=== PATIENT | female | born 1995 | race Caucasian/White ===

== ENCOUNTER 2020-08-22 09:48 | Emergency (ER) | payer OTHER, SELFPAY ==
--- NOTE | 2020-08-22 09:53 | ED.PREGNANCY ---
HPI - General Chief complaint: OB Stated complaint: , ob Time Seen by Provider: 08/22/20 09:52 Source: patient and old records reviewed Mode of arrival: ambulatory Limitations: no limitations History of Present Illness Complaint: other (told her by her OB she had a 17 week intrautereine demise on routine US yesterday - she wanted to have a 2nd opinion after her sister used a home heart tone machine and thought she heard something) Onset (ago): day(s) (1) Pain Consistency: other (no pain) Location: pelvis Relieving factors: none Exacerbating factors: none Associated symptoms: denies other symptoms Vaginal discharge: none Vaginal bleeding: none Patient : Yes Number of Weeks : 17 OB History - Current : other (confirmed IUFD by her [facility] OB yesterday ) OB History - Previous Pregnancies: other (told of demise yesterday) care: followed by OB Related Data : 1 Para: 0 Allergies Allergy/AdvReac Type Severity Reaction Status Date / Time No Known Allergies Allergy Unverified 07/19/20 16:26 [No Known Allergies*] Review of Systems Review of Systems: Constitutional : No Fever, No Chills Cardiovascular : No Chest Pain, No SOB Respiratory : No Cough, No Dyspnea Gastrointestinal : No Nausea, No Vomiting, No Diarrhea, No abdominal Pain Genitourinary : No Dysuria, No Hematuria, no vaginal bleeding Skin : No Skin lacerations, No rash Neuro : No Weakness, No Numbness, No Loss of Consciousness, No Dizziness, No Headache Psych : pos Anxiety/Panic, No Depression All other systems reviewed and are negative [facility] Past Medical History Medical History Asthma Diabetes Hypothyroidism Lupus Migraines : 1 Para: 0 Social History Social History (Updated 08/22/20 @ 09:54 by Mitra Knight DO) Smoking Status: Never smoker Use of substances other than those prescribed or required for medical reasons: No Advance Directives: No Advance Directives Information Provided: No Physical Exam Vital Signs: Vital Signs: Vital Signs Temp Pulse Resp BP Pulse Ox 08/22/20 10:03 98.5 F 111 H 18 132/84 99 Body Mass Index 22.2 Appearance: Alert. Oriented X3. No acute distress. Anxious Eyes: Pupils equal, round and reactive to light. ENT: Pharynx normal. Neck: Normal inspection. Neck supple. CVS: Normal heart rate and rhythm. Pulses normal. Respiratory: No respiratory distress. Breath sounds normal. Abdomen: Soft and nontender. Skin: Skin warm and dry. Normal skin color. Normal skin turgor. Extremities: No lower extremity edema. No calf ttp Neuro: Oriented X 3. No motor deficit. No sensory deficit. Procedures Procedure Narrative Procedure Narrative: bedsided transabdominal US shows intrauterine fetus no movement no cardiac activity after 3 minutes of scanning, performed by me, interpreted by me, exam consistent with IUFD Perimortem Number of Weeks : 17 MDM - OB/Uterine Contractions MDM Narrative Medical decision making narrative: 25 yo female with lupus G1 at 17 weeks found yesterday by her OB at [facility] to have IUFD - already has appointments and procedure scheduled this week, her sister used a home heart tones device and thought they heard something, she came her to have US to confirm her OBs findings of IUFD - I performed a bedside US that showed no cardiac activity or movement, the patient is aware and upset, wants to go home, discussed reasons to return and she plans to follow up with her own OB Discharge Plan Discharge Clinical Impression: Early intrauterine Patient Disposition: Home, Self-Care Instructions: Grief and Loss (ED) Additional Instructions: IF YOU HAVE SEVERE PAIN, VAGINAL BLEEDING PLEASE FOLLOW UP IN THE EMERGENCY DEPARTMENT. YOU ALSO NEED TO FOLLOW UP WITH [facility] OB SCHEDULED Stand Alone Forms: Work/School Release Interventions: ED Discharge Assessment Last Done: 08/22/20 10:20 Discharge Date/Time: 08/22/20 10:21
[2020-08-22 10:03] VITALS: BP 132/84; PULSE 111; RESP 18; TEMP 36.9; O2SAT 99; BMI 22.2
== END 2020-08-22 10:21 | disposition home or self-care (01) ==
LOC: HO.ED 10:15
PROVIDERS: Emergency Provider Emergency Medicine
DX: O02.1 Missed abortion (principal); Z3A.17 17 weeks gestation of pregnancy; E11.9 Type 2 diabetes mellitus without complications
CPT/HCPCS: 99282; 99284

== ENCOUNTER 2020-10-17 14:25 | Emergency (ER) | payer OTHER, SELFPAY ==
[2020-10-17 15:45] VITALS: BP 119/74; PULSE 77; RESP 16; TEMP 36.8; O2SAT 96; BMI 20.6
[2020-10-17 18:31] VITALS: BP 107/68; PULSE 78; RESP 16; TEMP 36.8; O2SAT 98
[2020-10-17 18:43] LABS: MANUAL DIFF FLAG NO
[2020-10-17 18:44] LABS: Basophils Percent Auto 0.4 % (0-2); Eosinophils Absolute Auto 0.1 X10*3/uL (0.0-0.4); Eosinophils Percent Auto 1.5 % (0-4); Hematocrit 38.4 % (37-47); Hemoglobin 12.7 g/dl (12.0-16.0); Imm Gran Abs Auto 0.01 X10*3/uL (0.00-0.03); Imm Gran Pct Auto 0.1 % (0.0-0.4); Lymphocytes Absolute Auto 1.4 X10*3/uL (1.2-4.9); Lymphocytes Percent Auto 20.3 % (20-40); Mean Corpuscular HGB Conc 33.1 g/dl (31.0-35.0); Mean Corpuscular Hemoglobin 29.7 pg (27.0-33.0); Mean Corpuscular Volume 89.7 fL (80-98); Mean Platelet Volume 12.5 fL (9.4-12.3); Monocytes Absolute Auto 0.5 X10*3/uL (0.1-1.2); Monocytes Percent Auto 7.6 % (2-11); Neutrophils Absolute Auto 4.7 X10*3/uL (2.0-8.3); Neutrophils Percent Auto 70.1 % (45-73); Platelet Count 264 X10*3/uL (160-400); Red Blood Count 4.28 X10*6/uL (4.20-5.50); Red Cell Distribution Width 12.2 % (11.0-16.0); White Blood Count 6.7 X10*3/uL (4.8-10.8)
[2020-10-17 18:46] LABS: Glucose Urine UA >=1000 MG/DL (NEG); Leukocyte Esterase Urine NEG (NEG); Nitrite Urine NEG (NEG); Urine Blood 1+ (NEG); Urine Ketones NEG (NEG); Urine Protein NEG (NEG-TRACE)
[2020-10-17 18:49] LABS: Appearance Urine HAZY; Color Urine STRAW
[2020-10-17 18:50] LABS: UPreg QC Valid YES; Urine Pregnancy NEGATIVE (NEGATIVE)
[2020-10-17 18:52] LABS: Prothrombin Time 12.4 SEC (10.8-13.0)
[2020-10-17 18:55] LABS: Partial Thromboplastin Time 37.2 SEC (24.1-38.0)
[2020-10-17 19:03] LABS: WBC Urine 0 /HPF (0-4)
[2020-10-17 19:04] LABS: Bacteria Urine 3+ /LPF
[2020-10-17 19:06] LABS: Alanine Aminotransferase 9 U/L (0-31); Albumin Level 4.3 g/dL (3.5-5.0); Alkaline Phosphatase 107 U/L (39-117); Anion Gap 10 (12-20); Aspartate Amino Transferase 11 U/L (5-31); Bilirubin Total 0.5 mg/dL (0.0-1.0); Blood Urea Nitrogen 9 mg/dL (9-16); Carbon Dioxide 28 mmol/L (22-29); Chloride 102 mmol/L (96-108); Creatinine Clr Calc Pharmacy 87.3; Estimated Glomerular Filt Rate > 60; Glucose Random 337 mg/dL (60-115); Potassium 3.8 mmol/l (3.3-5.1); Sodium 136 mmol/L (135-145); Total Protein 7.3 g/dL (6.5-8.0)
[2020-10-17 20:08] VITALS: BP 119/78; PULSE 75; RESP 18; TEMP 36.8; O2SAT 100
--- NOTE | 2020-10-17 20:28 | ED.SKABFB ---
HPI - Skin/Abscess/Foreign Bdy General Chief complaint: Skin/Abscess/Foreign Body Stated complaint: fatigue and bruising Time Seen by Provider: 10/17/20 17:57 Source: patient Mode of arrival: ambulatory Limitations: no limitations History of Present Illness HPI narrative: States she is here because she easily gets bruised and this is been going on for a little over a year after she had a miscarriage. MD complaint: rash Location: generalized Associated symptoms: denies other symptoms Treatments prior to arrival: none Related Data Home Medications Medication Instructions Recorded Confirmed glucagon (human recombinant) 1 mg SUBCUT ONCE PRN 10/17/20 10/17/20 [Glucagon Emergency Kit (human)] hydroxyzine HCl 1 tab PO TID 10/17/20 10/17/20 insulin lispro [Admelog U-100 0 - 100 unit SUBCUT DIRECTED 10/17/20 10/17/20 Insulin lispro] lamotrigine PO 10/17/20 levothyroxine 1 tab PO DAILY 10/17/20 10/17/20 Allergies Allergy/AdvReac Type Severity Reaction Status Date / Time No Known Allergies Allergy Unverified 07/19/20 16:26 [No Known Allergies*] Review of Systems Review of Systems: Constitutional: No Weight loss, No Fever, No Chills, No Night Sweats, No Fatigue, No Malaise ENT/Mouth: No Hearing loss, No Ear Pain, No Nasal Congestion, No Sinus Pain, No Hoarseness, No sore throat, No Rhinorrhea, No Swallowing Difficulty Eyes: No Eye Pain, No Swelling, No Redness, No Foreign Body, No Discharge, No Vision Changes Cardiovascular: No Chest Pain, No SOB, No Dyspnea on Exertion, No Orthopnea, No Edema, No Palpitations Respiratory: No Cough, No Sputum, No Wheezing, No Dyspnea Gastrointestinal: No Nausea, No Vomiting, No Diarrhea, No Constipation, No abdominal Pain, No Hematochezia, No Melena Genitourinary: no irregular bleeding, No Dysuria, No Urinary Frequency, No Hematuria, No Urinary Incontinence, No Urgency, No Flank Pain, No Urinary Flow Changes, No Hesitancy Musculoskeletal: No joint pain, No Myalgias, No Joint Swelling Skin: No Skin Lesions, No rash Neuro: No Weakness, No Numbness, No Paresthesias, No Loss of Consciousness, No Dizziness, No Headache Psych: No Social Issues Heme/Lymph: + Bruising, No Bleeding,No Lymphadenopathy Endocrine: No Polyuria, No Polydipsia, No Temperature Intolerance Yes all other systems are reviewed and are negative [facility] Past Medical History Medical History Asthma Diabetes Hypothyroidism Lupus Migraines Social History Social History (Updated 08/22/20 @ 09:54 by Mitra Knight DO) Smoking Status: Never smoker Smoked in Last 30 Days: No Use of substances other than those prescribed or required for medical reasons: No Advance Directives: No Advance Directives Information Provided: Yes Physical Exam Vital Signs: Vital Signs: Last Vital Signs Temp 98.3 F 10/17/20 20:08 Pulse 75 10/17/20 20:08 Resp 18 10/17/20 20:08 BP 119/78 10/17/20 20:08 Pulse Ox 100 10/17/20 20:08 Body Mass Index 20.6 Reviewed Const: General: cooperative and healthy appearing; No acute distress or intoxicated appearing Nutritional Appearance: average body habitus Orientation/consciousness: patient oriented x3 HENMT: Head: Yes normal to inspection Ears: hearing grossly normal bilaterally Eyes: General: appearance normal, both eyes and all related structures Visual Sunshine: normal visual sunshine by confrontation Neck: Neck: Yes normal visual inspection, No positive Brudzinski's sign, No positive Kernig's sign and No tender Thyroid: Thyroid normal Chest: Chest palpation & inspection: normal inspection of the chest Resp: Effort & Inspection: normal respiratory effort Cardio: Jugular venous distension: no JVD Rhythm: regular rhythm Heart sounds: S1 normal heart sound present GI: Inspection: Yes normal to inspection Percussion: Yes normal to percussion Auscultation: normal bowel sounds : General: Yes no CVA tenderness Back/Spine/Pelvis: Back: no CVA tenderness Skin: Other: She has a single ecchymosis area in the volar aspect of the right forearm. There is no ecchymosis anywhere else. General skin exam: no rashes or lesions noted Neuro: General: patient oriented x3 Extrem: General: Yes normal to inspection MDM - Skin/Abscess/Foreign Bdy MDM Narrative Medical decision making narrative: Labs overall stable. No thrombocytopenia. No anemia. Electrolytes within normal limits. Urine stable. Will advise to follow up with her primary care doctor. Lab Data Result diagrams: 10/17/20 18:36 10/17/20 18:36 Labs: Lab Results 10/17/20 10/17/20 10/17/20 Range/Units 18:36 18:36 18:36 WBC 6.7 (4.8-10.8) X10*3/uL RBC 4.28 (4.20-5.50) X10*6/uL Hgb 12.7 (12.0-16.0) g/dl Hct 38.4 (37-47) % MCV 89.7 (80-98) fL MCH 29.7 (27.0-33.0) pg MCHC 33.1 (31.0-35.0) g/dl RDW 12.2 (11.0-16.0) % Plt Count 264 (160-400) X10*3/uL MPV 12.5 H (9.4-12.3) fL Immature Gran % (Auto) 0.1 (0.0-0.4) % Neut % (Auto) 70.1 (45-73) % Lymph % (Auto) 20.3 (20-40) % [place] % (Auto) 7.6 (2-11) % Eos % (Auto) 1.5 (0-4) % Baso % (Auto) 0.4 (0-2) % Lymph # (Auto) 1.4 (1.2-4.9) X10*3/uL [place] # (Auto) 0.5 (0.1-1.2) X10*3/uL Eos # (Auto) 0.1 (0.0-0.4) X10*3/uL Baso # (Auto) 0.0 (0.0-0.2) X10*3/uL Abs Immat Gran (auto) 0.01 (0.00-0.03) X10*3/uL Absolute Neuts (auto) 4.7 (2.0-8.3) X10*3/uL Absolute Nucleated RBC 0.000 (0.0-0.012) X10*3/uL Nucleated RBC % (auto) 0.0 (0.0-0.2) /100WBC PT 12.4 (10.8-13.0) SEC INR 1.0 (0.9-1.1) APTT 37.2 (24.1-38.0) SEC Sodium 136 (135-145) mmol/L Potassium 3.8 (3.3-5.1) mmol/l Chloride 102 (96-108) mmol/L Carbon Dioxide 28 (22-29) mmol/L Anion Gap 10 L (12-20) BUN 9 (9-16) mg/dL Creatinine 0.91 (0.5-1.4) mg/dL Estim Creat Clear Calc 87.3 Estimated GFR > 60 Random Glucose 337 H (60-115) mg/dL Calcium 9.0 (8.4-10.2) mg/dL Total Bilirubin 0.5 (0.0-1.0) mg/dL AST 11 (5-31) U/L ALT 9 (0-31) U/L Alkaline Phosphatase 107 (39-117) U/L Total Protein 7.3 (6.5-8.0) g/dL Albumin 4.3 (3.5-5.0) g/dL Urine Color Urine Appearance Urine pH (5.0-8.0) Ur Specific [place] (1.005-1.025) Urine Protein (NEG-TRACE) MG/DL Urine Glucose (UA) (NEG) MG/DL Urine Ketones (NEG) MG/DL Urine Blood (NEG) Urine Nitrite (NEG) Ur Leukocyte Esterase (NEG) Urine RBC (0) /HPF Urine WBC (0-4) /HPF Ur Squamous Epith Cells /LPF Urine Bacteria /LPF Urine Test (NEGATIVE) 10/17/20 Range/Units 18:37 WBC (4.8-10.8) X10*3/uL RBC (4.20-5.50) X10*6/uL Hgb (12.0-16.0) g/dl Hct (37-47) % MCV (80-98) fL MCH (27.0-33.0) pg MCHC (31.0-35.0) g/dl RDW (11.0-16.0) % Plt Count (160-400) X10*3/uL MPV (9.4-12.3) fL Immature Gran % (Auto) (0.0-0.4) % Neut % (Auto) (45-73) % Lymph % (Auto) (20-40) % [place] % (Auto) (2-11) % Eos % (Auto) (0-4) % Baso % (Auto) (0-2) % Lymph # (Auto) (1.2-4.9) X10*3/uL [place] # (Auto) (0.1-1.2) X10*3/uL Eos # (Auto) (0.0-0.4) X10*3/uL Baso # (Auto) (0.0-0.2) X10*3/uL Abs Immat Gran (auto) (0.00-0.03) X10*3/uL Absolute Neuts (auto) (2.0-8.3) X10*3/uL Absolute Nucleated RBC (0.0-0.012) X10*3/uL Nucleated RBC % (auto) (0.0-0.2) /100WBC PT (10.8-13.0) SEC INR (0.9-1.1) APTT (24.1-38.0) SEC Sodium (135-145) mmol/L Potassium (3.3-5.1) mmol/l Chloride (96-108) mmol/L Carbon Dioxide (22-29) mmol/L Anion Gap (12-20) BUN (9-16) mg/dL Creatinine (0.5-1.4) mg/dL Estim Creat Clear Calc Estimated GFR Random Glucose (60-115) mg/dL Calcium (8.4-10.2) mg/dL Total Bilirubin (0.0-1.0) mg/dL AST (5-31) U/L ALT (0-31) U/L Alkaline Phosphatase (39-117) U/L Total Protein (6.5-8.0) g/dL Albumin (3.5-5.0) g/dL Urine Color STRAW Urine Appearance HAZY Urine pH 6.0 (5.0-8.0) Ur Specific [place] 1.010 (1.005-1.025) Urine Protein NEG (NEG-TRACE) MG/DL Urine Glucose (UA) >=1000 H (NEG) MG/DL Urine Ketones NEG (NEG) MG/DL Urine Blood 1+ H (NEG) Urine Nitrite NEG (NEG) Ur Leukocyte Esterase NEG (NEG) Urine RBC 10-14 H (0) /HPF Urine WBC 0 (0-4) /HPF Ur Squamous Epith Cells NONE /LPF Urine Bacteria 3+ /LPF Urine Test NEGATIVE (NEGATIVE) Discharge Plan Discharge Clinical Impression: Bruising Patient Disposition: Home, Self-Care Instructions: Ecchymosis (ED) Prescriptions: No Action lamotrigine 25 mg tablet PO RF: 0 levothyroxine 150 mcg tablet 1 tab PO DAILY RF: 0 Glucagon Emergency Kit (human) 1 mg recon soln 1 mg subcut ONCE PRN (Reason: hypoglycemia) RF: 0 hydroxyzine HCl 25 mg tablet 1 tab PO TID RF: 0 insulin lispro [Admelog U-100 Insulin lispro] 100 unit/mL solution 0 - 100 unit subcut DIRECTED RF: 0 Referrals: Naila Ramirez MD [Primary Care Provider] - 2 weeks
== END 2020-10-17 20:51 | disposition home or self-care (01) ==
PROVIDERS: Nurse Practitioner Primary Care; Emergency Provider Emergency Medicine; PCP Internal Medicine
DX: S50.11XA Contusion of right forearm, initial encounter (principal); X58.XXXA Exposure to other specified factors, initial encounter; E11.9 Type 2 diabetes mellitus without complications; Y93.9 Activity, unspecified; Y92.9 Unspecified place or not applicable; Y99.9 Unspecified external cause status
CPT/HCPCS: 36415; 80053; 81001; 81025; 85025; 85610; 85730; 99283; 99284